=== PATIENT | male | born 1980 | race Caucasian/White ===

== ENCOUNTER → 2016-11-15 | Outpatient (CLI) | payer BC ==
--- NOTE | 2016-11-15 23:32 | DI ---
XR ANKLE COMPLETE MIN 3VW,11/15/2016 1:30 PM: Clinical History: Right ankle pain Previous Exam: None at this facility. Findings: 3 views of the right ankle are obtained, and demonstrate screw and plate fixation of the right medial tibia. There is a broken screw within the mid tibial diaphysis. There are lag screws noted through the distal tibiofibular joint. Advanced sclerosis is noted. 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 Impression: Postsurgical changes of the right ankle are obtained, and demonstrate diffuse degenerative changes an d screw and plate fixation of the right ankle.
== END ==
LOC: ORTHO 13:23
PROVIDERS: ATTEND Orthopaedic Surgery
DX: M25.571 Pain in right ankle and joints of right foot (principal); M19.071 Primary osteoarthritis, right ankle and foot
CPT/HCPCS: 73610

== ENCOUNTER → 2016-12-27 | Outpatient (CLI) | payer BC ==
--- NOTE | 2016-12-27 23:39 | DI ---
XR ANKLE COMPLETE MIN 3VW,12/27/2016 1:47 PM: Clinical History: Right ankle pain Previous Exam: November 15, 2016 Findings: 3 views of the right ankle are obtained, and demonstrate screw and plate fixation of the medial tibia . There is sclerotic fusion of the distal tibiofibular joint. Multiple screws are noted to include leg screws. There is severe degenerative change of the talonavicular joint. There is also some sclerosis and dege nerative change of the subtalar joint. Surrounding soft tissues are unremarkable. Impression: Extensive degenerative change of the right ankle with stable hardware when compared with the prior ex am.
== END ==
LOC: RAD 13:44
PROVIDERS: ATTEND Orthopaedic Surgery
DX: S82.4 Fracture of shaft of fibula (principal); S82.871 Displaced pilon fracture of right tibia
CPT/HCPCS: 73610